=== PATIENT | female | born 1990 ===

== ENCOUNTER → 2018-08-18 16:22 | Outpatient (REF) | payer OTHER, SELFPAY ==
[2018-08-18 17:01] LABS: Add Manual Diff / Slide Review NO; Basophils Percent Auto 0.4 % (0-2); Eosinophils Percent Auto 1.9 % (2-4); Hematocrit 43.5 % (36-46); Hemoglobin 14.8 g/dL (12.0-16.0); Mean Corpuscular HGB Conc 34.1 % (30-36); Mean Corpuscular Hemoglobin 29.6 PG (26-34); Mean Corpuscular Volume 86.8 fL (80-100); Monocytes Percent Auto 16.8 % (3-14); Neutrophils Absolute Auto 2700 /uL (3000-5900); Neutrophils Percent Auto 57.9 % (50-75); Platelet Count 191 X10^3/uL (150-400); Red Blood Cell Count 5.01 X10^6/uL (4.0-5.2); White Blood Cell Count 4.7 X10^3/uL (4.5-11.0)
[2018-08-18 17:07] LABS: Alanine Aminotransferase 54 IU/L (9-52); Albumin 4.2 g/dL (3.5-5.0); Albumin Globulin Ratio 1.6 (1.0-2.8); Alkaline Phosphatase 65 U/L (38-126); Aspartate Aminotransferase 46 IU/L (14-36); BUN Creatinine Ratio 18.3 (6-22); Bilirubin Total 0.8 mg/dL (0.2-1.3); Blood Urea Nitrogen 11 mg/dL (7-17); Calcium 8.8 mg/dL (8.4-10.2); Carbon Dioxide 27 mmol/L (22-32); Chloride 102 mmol/L (98-107); Cholesterol 182 mg/dL (140-199); Estimated Glomerular Filt Rate > 60.0 mL/min (>60); Globulin 2.7 g/dL (1.7-4.1); Glucose 75 mg/dL (70-100); HDL Cholesterol 75 mg/dL (40-60); HEMOLYSIS 18 (0-50); LDL Cholesterol Calculated 94 mg/dL (<100); Potassium 4.2 mmol/L (3.4-5.1); Sodium 141 mmol/L (137-145); Total Protein 6.9 g/dL (6.3-8.2); Triglycerides 67 mg/dL (35-150)
[2018-08-18 17:24] LABS: HCG Quantitative /Beta subunit < 2.39 mIU/mL
[2018-08-18 18:10] LABS: Erythrocyte Sedimentation Rate 3 MM/HR (0-20)
== END ==
LOC: LAB 16:22
PROVIDERS: Visit Provider Nurse Practitioner Acute Care
DX: R10.0 Acute abdomen (principal); Z02.83 Encounter for blood-alcohol and blood-drug test
CPT/HCPCS: 80053; 80061; 84702; 85025; 85651